=== PATIENT | male | born 1970 | race African-American/Black ===

== ENCOUNTER 2017-11-24 19:18 | Inpatient (IN) | payer MEDICARE ==
[2017-11-24] MEDS ORDERED: ALBUTEROL SO4 2.5/IPRATROPIUM 0.5 INH SOL 3 ML VIAL.NEB. NEB ONE ×3 (19:35→21:25)
[2017-11-24] MEDS ORDERED: ASPIRIN 81 MG CHEWABLE TABLETS PO ONE (19:36)
[2017-11-24] MEDS ORDERED: NITROGLYCERIN SUBLINGUAL 1/150 0.4 MG TAB SL ONE ×4 (19:36→20:23)
[2017-11-24] MEDS ORDERED: ASPIRIN 325 MG TABLET ONE (19:40)
[2017-11-24 20:01] LABS: BASO % 0.5 % (0-2.0); EOS % 4.4 % (0-4.5); HEMATOCRIT 44.1 % (35.4-49); HEMOGLOBIN 15.6 GM/dL (11.7-16.9); LYMPH % 17.7 % (8-40); MCH 31.1 pg (25.7-33.7); MCHC 35.5 g/dl (32.0-35.9); MEAN CELL VOLUME 87.7 fl (80-96); MEAN PLT VOLUME 6.9 fl (7.5-11.1); MONO % 10.2 % (3.8-10.2); NEUT % 67.2 % (42.8-82.8); PLATELET COUNT 264 K/MM3 (134-434); RBC 5.03 M/mm3 (4.00-5.60); RDW 13.5 % (11.9-15.9); WHITE BLOOD COUNT 8.5 K/mm3 (4.0-10.0)
[2017-11-24 20:26] LABS: ALBUMIN 4.1 g/dl (3.4-5.0); ANION GAP 9 (8-16); BILIRUBIN,TOTAL 0.5 mg/dL (0.2-1.0); BLOOD UREA NITROGEN 50 mg/dL (7-18); CALCIUM 7.7 mg/dL (8.5-10.1); CHLORIDE 100 mmol/L (98-107); CO2 29 mmol/L (21-32); CREATININE 4.4 mg/dL (0.7-1.3); GLUCOSE,RANDOM 83 mg/dL (74-106); POTASSIUM 3.2 mmol/L (3.5-5.1); SGOT/AST 20 U/L (15-37); SGPT/ALT 22 U/L (12-78); SODIUM 138 mmol/L (136-145); TOT PROT 7.5 g/dl (6.4-8.2)
[2017-11-24 20:28] LABS: ALK PHOS 69 U/L (45-117)
[2017-11-24] MEDS ORDERED: NITROGLYCERIN 2% OINTMENT - 1GM PACKET TD ONE (20:31)
--- NOTE | 2017-11-24 20:49 | PDOC ---
History of Present Illness - General Chief Complaint: Shortness of Breath Stated Complaint: ASTHMA Time Seen by Provider: 11/24/17 19:29 History Source: Patient Exam Limitations: No Limitations - History of Present Illness Initial Comments: This is a 47 YOM with h/o asthma, HTN (not adherent to medications), and tobacco use (smokes cigarettes/cigars) who p/w midsternal chest pain made worse with deep breathing, ongoing for the past 2-3 days but significantly worsened this afternoon. He has never had this type of pain before. He additionally notes a recent cough and wheezing typical of his asthma exacerbations, but no additional symptoms (no fever, chills, nausea, vomiting, diarrhea, constipation , dysuria, hematuria, atraumatic pleuritic chest pain, difficulty breathing and hypoxemia. Patient's EKG reveals symmetrical T wave inversions in leads 1, aVL, V4 and V6 consistent with lateral wall ischemia. No previous EKGs available for comparison. Upon arrival, patient received aspirin, sublingual nitroglycerin 3 as well as transdermal nitroglycerin with significant improvement in level of her chest discomfort. Repeat EKG showed no dynamic changes with persistent T-wave inversions described earlier. Patient had also received continuous nebulizer therapy with albuterol and Atrovent, Solu-Medrol and magnesium sulfate. Patient' s respiratory status improved symptomatically with increased area entry bilaterally and significantly more pronounced expiratory wheezing bilaterally. However he remains hypoxemic to 88% on room air with improvement to 93% on 2 L via nasal cannula. Patient's chest x-ray reveals no evidence of widened mediastinum, cardiomegaly, infiltrate or effusion; patient's d-dimer is noted to be 497. CBC reveals no evidence of leukocytosis. CMP reveals negative cardiac enzymes and significantly elevated BUN/creatinine consistent with acute renal insufficiency. Patient will require admission to our to telemetry for further evaluation and treatment as well as continuous nebulizer therapy and cardiology and renal consultations. Normocephalic and atraumatic PERRLA, EOMI No JVD, neck is supple + Significant only decreased air entry bilaterally; minimal and expiratory wheezing bilaterally is noted, there is no accessory muscle use or retractions; RRR, Tachycardic Abdomen soft, nontender, nondistended No lower extremity edema Patient is awake and alert, oriented 3, moving all extremity symmetrically #1 11/24/17 22:50 EKG performed at: 24 Nov 2017 at 19:26:03 Vent Rate 112 bpm MO interval 152 ms QRS duration 92 ms QT/QTc 334/455 ms P-R-T axes 59 [address] & T wave abnormality, consider lateral ischemia Abnormal ECG #2 11/24/17 22:51 EKG performed at: 24 Nov 2017 at 20:24:14 Vent Rate 112 bpm MO interval 148 ms QRS duration 84ms QT/QTc 374/510 ms P-R-T axes [address] & T wave abnormality, consider lateral ischemia Abnormal ECG 11/24/17 23:29 Past History - Past Medical History Allergies/Adverse Reactions: Allergies Allergy/AdvReac Type Severity Reaction Status Date / Time No Allergy Information Allergy Verified 11/24/17 19:28 Available Asthma: Yes COPD: No HTN: Yes - Immunization History Immunization Up to Date: Yes - Suicide/Smoking/Psychosocial Hx Smoking History: Unknown if ever smoked Have you smoked in the past 12 months: No Information on smoking cessation initiated: No Hx Alcohol Use: No Drug/Substance Use Hx: No Substance Use Type: None Review of Systems - Review of Systems Able to Perform ROS?: Yes Constitutional: No: Chills, Fever, Unexplained wgt Loss HEENTM: No: Nose Congestion, Throat Pain Respiratory: Yes: Cough, Shortness of Breath, Wheezing Cardiac (ROS): Yes: Chest Pain. No: Edema, Palpitations ABD/GI: No: Constipated, Diarrhea, Nausea, Vomiting : No: Burning, Dysuria Musculoskeletal: No: Back Pain, Neck Pain Integumentary: No: Bruising, Rash Neurological: No: Headache, Numbness, Tingling, Weakness, Dizziness Endocrine: No: Unexplained Weight Gain, Unexplained Weight Loss *Physical Exam - Vital Signs Last Vital Signs Temp Pulse Resp BP Pulse Ox 98.2 F 109 H 20 135/80 92 L 11/24/17 19:24 11/24/17 20:35 11/24/17 20:35 11/24/17 20:35 11/24/17 20:35 - Physical Exam General Appearance: Yes: Nourished, Appropriately Dressed, Other (well appearing and nontoxic appearing but slightly uncomfortable adult male, answering questions appropriately). No: Apparent Distress HEENT: positive: EOMI, OBIE, Normal Voice, Hearing Grossly Normal. negative: Scleral Icterus (R), Scleral Icterus (L), Nasal Congestion Neck: positive: Trachea midline, Supple. negative: Tender, Rigid Respiratory/Chest: positive: Chest Tender (mild tenderness to compression of chest wall reproduces chief complaint exactly), Lungs Clear, Normal Breath Sounds, Wheezing. negative: Respiratory Distress, Crackles, Rhonchi, Stridor Cardiovascular: positive: Regular Rhythm, S1, S2, Tachycardia. negative: Edema , JVD, Murmur Gastrointestinal/Abdominal: positive: Normal Bowel Sounds, Flat, Soft. negative : Tender, Organomegaly, Pulsatile Mass, Guarding Musculoskeletal: positive: Normal Inspection. negative: Decreased Range of Motion, Vertebral Tenderness Extremity: positive: Normal Capillary Refill, Normal Inspection, Normal Range of Motion. negative: Tender, Cyanosis Integumentary: positive: Normal Color, Dry, Warm. negative: Erythema, Rash, Bruising Neurologic: positive: emergency dispatch operator II-XII NML intact (grossly), Fully Oriented, Alert, Normal Mood/Affect, Normal Response, Motor Strength 5/5 Heart Score/ECG Review - History History: Moderately suspicious - Electrocardiogram EKG: Significant ST-depression - Age Age: 45-65 - Risk Factors Risk Factors Heart Score: Yes Hx Hypertension, Yes Smoking History Based on the list above the patient has:: 1-2 risk factors - Troponin Troponin: </= normal limit - Score Heart Score - Total: 5 ED Treatment Course - LABORATORY CBC & Chemistry Diagram: 11/24/17 18:55 11/24/17 18:55 - ADDITIONAL ORDERS Additional order review: Laboratory Results 11/24/17 11/24/17 18:55 18:55 PT with INR 11.70 INR 1.04 D-Dimer 457 Sodium 138 Potassium 3.2 L Chloride 100 Carbon Dioxide 29 Anion Gap 9 BUN 50 H Creatinine 4.4 H Creat Clearance w eGFR 14.62 Random Glucose 83 Calcium 7.7 L Total Bilirubin 0.5 AST 20 ALT 22 Alkaline Phosphatase 69 Creatine Kinase 482 H Creatine Kinase Index 0.6 CK-MB (CK-2) 2.968 Troponin I 0.03 Total Protein 7.5 Albumin 4.1 11/24/17 18:55 RBC 5.03 MCV 87.7 MCHC 35.5 RDW 13.5 MPV 6.9 L Neutrophils % 67.2 Lymphocytes % 17.7 Monocytes % 10.2 Eosinophils % 4.4 Basophils % 0.5 - Medications Given in the ED: ED Medications Discontinued Medications Generic Name Dose Route Start Last Admin Trade Name Octaviano PRN Reason Stop Dose Admin Acetaminophen 650 mg 11/24/17 21:24 11/24/17 21:30 Tylenol - PO 11/24/17 21:25 650 mg ONCE ONE Administration Albuterol/Ipratropium 1 amp 11/24/17 19:35 11/24/17 19:49 Duoneb - NEB 11/24/17 19:36 1 amp ONCE ONE Administration Albuterol/Ipratropium 1 amp 11/24/17 21:25 11/24/17 21:30 Duoneb - NEB 11/24/17 21:26 1 amp ONCE ONE Administration Aspirin 324 mg 11/24/17 19:36 11/24/17 19:49 Asa - PO 11/24/17 19:37 324 mg ONCE ONE Administration Magnesium Sulfate 2 gm 11/24/17 21:25 11/24/17 21:40 Magnesium Sulfate IVPB 11/24/17 21:26 2 gm ONCE ONE Administration Methylprednisolone Sodium Succinate 125 mg 11/24/17 21:40 11/24/17 21:41 Solu-Medrol - IVPUSH 11/24/17 21:41 125 mg NOW ONE Administration Nitroglycerin 0.4 mg 11/24/17 19:36 11/24/17 19:49 Nitrostat - SL 11/24/17 19:37 0.4 mg ONCE ONE Administration Nitroglycerin 0.4 mg 11/24/17 20:05 11/24/17 20:06 Nitrostat - SL 11/24/17 20:06 0.4 mg NOW ONE Administration Nitroglycerin 0.4 mg 11/24/17 20:10 11/24/17 20:20 Nitrostat - SL 11/24/17 20:11 0.4 mg ONCE ONE Administration Nitroglycerin 0.4 mg 11/24/17 20:23 11/24/17 20:20 Nitrostat - SL 11/24/17 20:24 0.4 mg ONCE ONE Administration *DC/Admit/Observation/Transfer Diagnosis at time of Disposition: MARIANNE (acute kidney injury), T wave inversion in EKG Chest pain Qualifiers: Chest pain type: unspecified Qualified Code(s): R07.9 - Chest pain, unspecified Asthma exacerbation Qualifiers: Asthma severity: unspecified severity Asthma persistence: unspecified Qualified Code(s): J45.901 - Unspecified asthma with (acute) exacerbation - Discharge Dispostion Condition at time of disposition: Guarded Decision to Admit order: Yes Decision to Admit order Date/Time: Decision to Admit Order Category Date Time Status Decision to Admit to Hospital Routine Admission 11/24/17 23:25 Ordered - Referrals - Patient Instructions - Post Discharge Activity
[2017-11-24 20:58] LABS: INR 1.04 (0.82-1.09); PROTHROMBIN TIME (PATIENT) 11.7 SEC (9.7-13.0)
[2017-11-24] MEDS ORDERED: ACETAMINOPHEN 325 MG TABLET (FP) PO ONE (21:24)
[2017-11-24] MEDS ORDERED: MAGNESIUM SULF 50% (8.12 MEQ/2 ML-1 GM VIAL) ONE (21:25)
[2017-11-24] MEDS ORDERED: ACETAMINOPHEN 325 MG TABLET (FP) ONE (21:25)
[2017-11-24] MEDS ORDERED: MAGNESIUM SULF 50% (8.12 MEQ/2 ML-1 GM VIAL) IVPB ONE (21:25)
[2017-11-24] MEDS ORDERED: methylPREDNISolone NA SUCC 125 MG/2 ML VIAL ONE (21:25)
[2017-11-24] MEDS ORDERED: methylPREDNISolone NA SUCC 125 MG/2 ML VIAL IVPUSH ONE (21:40)
--- NOTE | 2017-11-24 22:49 | PDOC ---
Attending Attestation - Resident Resident Name: Lucrecia Conner - ED Attending Attestation I have performed the following: I have examined & evaluated the patient, The case was reviewed & discussed with the resident, I agree w/resident's findings & plan, Exceptions are as noted - Physicial Exam PE: 11/24/17 22:44 Patient was seen and evaluated immediately upon arrival. On initial evaluation, patient is awake and alert, well-nourished, tachypneic and dyspneic, hypoxic to 88% on room air, improving to 93% on 2 L via nasal cannula; Normocephalic and atraumatic PERRLA, EOMI No JVD, neck is supple + Significant only decreased air entry bilaterally; minimal and expiratory wheezing bilaterally is noted, there is no accessory muscle use or retractions; RRR, Tachycardic Abdomen soft, nontender, nondistended No lower extremity edema Patient is awake and alert, oriented 3, moving all extremity symmetrically - Medical Decision Making 11/24/17 22:45 Patient is a 47-year-old male with history of hypertension (noncompliant with his medication regimen), asthma (no history of intubations) who presents with atraumatic pleuritic chest pain, difficulty breathing and hypoxemia. Patient's EKG reveals symmetrical T wave inversions in leads 1, aVL, V4 and V6 consistent with lateral wall ischemia. No previous EKGs available for comparison. Upon arrival, patient received aspirin, sublingual nitroglycerin 3 as well as transdermal nitroglycerin with significant improvement in level of her chest discomfort. Repeat EKG showed no dynamic changes with persistent T-wave inversions described earlier. Patient had also received continuous nebulizer therapy with albuterol and Atrovent, Solu-Medrol and magnesium sulfate. Patient' s respiratory status improved symptomatically with increased area entry bilaterally and significantly more pronounced expiratory wheezing bilaterally. However he remains hypoxemic to 88% on room air with improvement to 93% on 2 L via nasal cannula. Patient's chest x-ray reveals no evidence of widened mediastinum, cardiomegaly, infiltrate or effusion; patient's d-dimer is noted to be 497. CBC reveals no evidence of leukocytosis. CMP reveals negative cardiac enzymes and significantly elevated BUN/creatinine consistent with acute renal insufficiency. Patient will require admission to our to telemetry for further evaluation and treatment as well as continuous nebulizer therapy and cardiology and renal consultations. <Braxton Houston - Last Filed: 11/24/17 22:43> - HPI HPI: 11/24/17 22:50 The patient is a 47 year old male, with a significant past medical history of asthma and hypertension (noncompliant with medication), who presents to the emergency department with, several days of midsternal chest pain. The patient describes his chest pain as pleuritic in nature with associated difficulty breathing and cough. The patient smokes both cigarettes and cigars. He denies any recent fevers, chills, headache or dizziness. He denies any recent nausea, vomit, diarrhea or constipation. He denies any recent dysuria, frequency, urgency or hematuria. Allergies: NKA Past surgical history: None reported. Social History: Smoker. Denies EtOH use and recreational drug use. <Zakiya Luna - Last Filed: 11/24/17 22:51> Heart Score/ECG Review #1 11/24/17 22:50 EKG performed at: 24 Nov 2017 at 19:26:03 Vent Rate 112 bpm GA interval 152 ms QRS duration 92 ms QT/QTc 334/455 ms P-R-T axes 59 [address] & T wave abnormality, consider lateral ischemia Abnormal ECG #2 11/24/17 22:51 EKG performed at: 24 Nov 2017 at 20:24:14 Vent Rate 112 bpm GA interval 148 ms QRS duration 84ms QT/QTc 374/510 ms P-R-T axes 42 [address] & T wave abnormality, consider lateral ischemia Abnormal ECG <Zakiya Luna - Last Filed: 11/24/17 22:51> Attestations - Attestations 11/24/17 22:51 Documentation prepared by Zakiya Luna, acting as medical assistant ob gyn for Braxton Houston MD. <Zakiya Luna - Last Filed: 11/24/17 22:51>
[2017-11-24] MEDS ORDERED: ATORVASTATIN CA 80 MG TABLET (FP) PO ONE (23:28)
[2017-11-25] MEDS ORDERED: ALBUTEROL SO4 0.083% IH SOL 2.5 MG/3 ML VIAL.NEB. NEB PRN (00:59)
--- NOTE | 2017-11-25 01:05 | HP ---
CHIEF COMPLAINT: chest pain, SOB x 2 days PCP: at [facility], recently retired- Dr. Naik HISTORY OF PRESENT ILLNESS: 47 y/o M with PMH HTN (dx 7 months ago at [facility] by PMD; on HCTZ, amlodipine-noncompliant. Only compliant over last 2 wks), asthma (no hx intubations), recent active smoker (few cigarettes/wk), who presents to the ED c /o chest pain and SOB over the past two days. As per pt, when he was home and sitting at rest yesterday, he developed sudden mid-sternal chest pain. It was a 7/10, "pressure-like" sensation in his mid-sternal region, which was initially a 7/10 improving to 4/10 after receiving nitroglycerin in the ED. It was a/w SOB and pleuritic pain. Initially, he thought his asthma was worsening, so he took his albuterol inhaler q1h, only to have his sx subside temporarily in between. Today, pt's SOB became so severe that he decided to come to to the hospital for further evaluation. Denies TORO, N/V, diaphoresis, L arm radiation, abdominal pain, or changes in urinary or bowel function. Pt has never been followed by a leather belt loop cutter, but has had a stress test done in the past. He states that the result was normal. He has never followed with a campus manager, and states that he has never been told that he had any renal issues. ER course was notable for: (1) aspirin 324mg PO x 1 (2) nitro 0.4mg SL x 3 (3) mg sulfate 2gm IVPB (4) solumedrol 125mg IVP x 1 (5) duonebs x2 Recent Travel: none PAST MEDICAL HISTORY: as above PAST SURGICAL HISTORY: R knee surgery- 2013 Social History: was a [place]. 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 2-3 x a week shots and multiple beers Drugs: currently denies. marijuana in past Family History: Allergies No Allergy Information Available Allergy (Verified 11/24/17 19:28) HOME MEDICATIONS: -Home pharmacy: [facility] pharmacy [phone] Pt not compliant with home medications states he is on "HCTZ" and "amlodipine" does not know dosages will need to call pharmacy when open for official med rec REVIEW OF SYSTEMS CONSTITUTIONAL: Absent: fever, chills, diaphoresis, generalized weakness, malaise, loss of appetite, weight change HEENT: Absent: rhinorrhea, nasal congestion, throat pain, throat swelling, difficulty swallowing, mouth swelling, ear pain, eye pain, visual changes CARDIOVASCULAR: +chest pain Absent: syncope, palpitations, irregular heart rate, lightheadedness, peripheral edema RESPIRATORY: +SOB Absent: cough, dyspnea with exertion, orthopnea, wheezing, stridor, hemoptysis GASTROINTESTINAL: Absent: abdominal pain, abdominal distension, nausea, vomiting, diarrhea, constipation, melena, hematochezia GENITOURINARY: Absent: dysuria, frequency, urgency, hesitancy, hematuria, flank pain, genital pain MUSCULOSKELETAL: Absent: myalgia, arthralgia, joint swelling, back pain, neck pain SKIN: Absent: rash, itching, pallor HEMATOLOGIC/IMMUNOLOGIC: Absent: easy bleeding, easy bruising, lymphadenopathy, frequent infections ENDOCRINE: Absent: unexplained weight gain, unexplained weight loss, heat intolerance, cold intolerance NEUROLOGIC: Absent: headache, focal weakness or paresthesias, dizziness, unsteady gait, seizure, mental status changes, bladder or bowel incontinence PSYCHIATRIC: Absent: anxiety, depression, suicidal or homicidal ideation, hallucinations. PHYSICAL EXAMINATION Vital Signs - 24 hr 11/24/17 11/24/17 11/24/17 19:24 19:57 20:04 Temperature 98.2 F Pulse Rate 122 H Pulse Rate [ 122 H Apical] Respiratory 22 20 Rate Blood Pressure 136/89 Blood Pressure 112/71 [Right Arm] O2 Sat by Pulse 90 L 99 Oximetry (%) 11/24/17 20:35 Temperature Pulse Rate Pulse Rate [ 109 H Apical] Respiratory 20 Rate Blood Pressure Blood Pressure 135/80 [Right Arm] O2 Sat by Pulse 92 L Oximetry (%) GENERAL: Sitting in bed, eating pizza. Awake, alert, and fully oriented, in no acute distress. HEAD: Normal with no signs of trauma. EYES: Pupils equal, round and reactive to light, extraocular movements intact, sclera anicteric, conjunctiva clear. EARS, NOSE, THROAT: Ears normal, nares patent, oropharynx clear without exudates. Moist mucous membranes. NECK: Normal range of motion, supple. -JVD LUNGS: Breath sounds equal, clear to auscultation bilaterally. No wheezes, and no crackles. No accessory muscle use. HEART: Regular rate and rhythm, normal S1 and S2 without murmur, rub or gallop. ABDOMEN: Soft, nontender, not distended, normoactive bowel sounds, no guarding, no rebound, no masses. MUSCULOSKELETAL: Normal range of motion at all joints. No bony deformities or tenderness. No CVA tenderness. LOWER EXTREMITIES: 2+ posterior tibial pulses, warm, well-perfused. No calf tenderness. No peripheral edema. NEUROLOGICAL: Cranial nerves II-XII intact. Normal speech. Normal gait. PSYCHIATRIC: Cooperative. Laboratory Results - last 24 hr 11/24/17 11/24/17 11/24/17 18:55 18:55 18:55 WBC 8.5 RBC 5.03 Hgb 15.6 Hct 44.1 MCV 87.7 MCH 31.1 MCHC 35.5 RDW 13.5 Plt Count 264 MPV 6.9 L Neutrophils % 67.2 Lymphocytes % 17.7 Monocytes % 10.2 Eosinophils % 4.4 Basophils % 0.5 PT with INR 11.70 INR 1.04 D-Dimer 457 Sodium 138 Potassium 3.2 L Chloride 100 Carbon Dioxide 29 Anion Gap 9 BUN 50 H Creatinine 4.4 H Creat Clearance w eGFR 14.62 Random Glucose 83 Calcium 7.7 L Total Bilirubin 0.5 AST 20 ALT 22 Alkaline Phosphatase 69 Creatine Kinase 482 H Creatine Kinase Index 0.6 CK-MB (CK-2) 2.968 Troponin I 0.03 Total Protein 7.5 Albumin 4.1 11/24/17: CXR: no evidence of acute infiltrate, pulmonary vascular congestion or pleural effusion. 11/24/17: EKG: TWI I, avL, v4-v6 ASSESSMENT/PLAN: 47 y/o M with PMH HTN (dx 7 months ago at [facility] by PMD; on HCTZ, amlodipine-noncompliant. Only compliant over last 2 wks), asthma (no hx intubations), recent active smoker (few cigarettes/wk), who presents to the ED c /o chest pain and SOB over the past two days. #Chest pain, r/o ACS -Mid-sternal chest pain, clinically improved with NG -EKG: with evidence of lateral ischemia, no change in EKG w/NG -F/u ECHO - to determine any wall motion abnormalities -Received aspirin 324 mg PO x 1 in ED -to continue on aspirin 81mg PO qd -Lipitor 40mg PO qd -F/u TSH -1st trop (-), trend q6h. serial EKGs -Lipid panel -Utox -A1c -Cardio consult - -tele monitoring #?MARIANNE on CKD vs. CKD possibly 2/2 non-compliance with HTN meds -Will need to calculate FEna to determine type -F/u urine lytes, urine sodium, creatinine -F/u Renal sono -IV LR 100 cc/hr gently hydrate -avoid nephrotoxic agents -Nephro consult- Dr. Luu #HTN- currently controlled -Continue amlodipine 10mg PO qd -D/c HCTZ for now d/t renal fnc #asthma -albuterol 1 amp q4h PRN -will reassess, as pt with chest pain do not want to cause incr demand and tachycardia #active smoker -counseled on smoking cessation #hypokalemia -will supplement through IV LR for now, as pt with ARF will avoid oral supplementations #hypocalcemia -corrected Ca 7.6 -as above, supplemented through IV LR for now as pt with ARF avoid oral supplementations #F/E/N IV LR 100 cc/hr monitor lytes cholesterol/fat controlled diet #PPX early ambulation, SCD's #Dispo continued monitoring on tele Visit type - Emergency Visit Emergency Visit: Yes ED Registration Date: 11/24/17 Care time: The patient presented to the Emergency Department on the above date and was hospitalized for further evaluation of their emergent condition. - New Patient This patient is new to me today: Yes Date on this admission: 11/25/17 - Critical Care Critical Care patient: No Hospitalist Screening - Colonoscopy Questionnaire Colonoscopy Questionnaire: Colonoscopy Questionnaire - Patient: 50 - 75 years old and never had a screening colonoscopy: Unknown History of colon or rectal polyps, or CA: Unknown History of IBD, Crohn's disease or UC: Unknown History of abdominal radiation therapy as a child: Unknown - Relative: 1 with colon or rectal CA, or polyps at age 60 or younger: Unknown Colon or rectal CA diagnosed at age 45 or younger: Unknown Multiple relatives with colon or rectal CA: Unknown - Outcome: Screening Result: Negative Screen
[2017-11-25] MEDS ORDERED: ATORVASTATIN CA 80 MG TABLET (FP) ONE (01:08)
[2017-11-25] MEDS: LACTATED RINGERS SOLUTION 1,000 ML/1,000 ML INFUS.BAG IV SCH (01:14)
[2017-11-25 01:38] LABS: COCAINE, UR NEGATIVE ng/ml (CUTOFF=300); METHADONE, UR NEGATIVE ng/ml (CUTOFF=300); OPIATES, URI NEGATIVE ng/ml (CUTOFF=300); PHENCYCLIDINE,URINE NEGATIVE ng/ml (CUTOFF=25); URINE AMPHETAMINES NEGATIVE ng/ml (CUTOFF=500); URINE BARBITURATES NEGATIVE ng/ml (CUTOFF=200); URINE BENZODIAZEPINES NEGATIVE ng/ml (CUTOFF=200)
[2017-11-25 01:51] LABS: URINE APPEARANCE CLEAR; URINE BILIRUBIN NEGATIVE (<2.0 mg/dL); URINE BLOOD NEGATIVE (NEGATIVE); URINE COLOR YELLOW; URINE GLUCOSE (UA) NEGATIVE (NEGATIVE); URINE KETONE NEGATIVE (NEGATIVE); URINE LEUK ESTERASE NEGATIVE (NEGATIVE); URINE NITRITE NEGATIVE (NEGATIVE); URINE PROTEIN NEGATIVE (NEGATIVE); URINE UROBILINOGEN NEGATIVE mg/dL (0.2-1.0)
[2017-11-25 03:21] VITALS: BMI 26.2
--- NOTE | 2017-11-25 04:08 | PN ---
Teaching Attending Note Name of Resident: Genevieve Tabares ATTENDING PHYSICIAN STATEMENT I saw and evaluated the patient. I reviewed the resident's note and discussed the case with the resident. I agree with the resident's findings and plan as documented. SUBJECTIVE: OBJECTIVE: ASSESSMENT AND PLAN: this is a 47 y/o M with PMH HTN (dx 7 months ago at [facility] by PMD; on HCTZ, amlodipine) who is noncompliant, asthma (no hx intubations), active smoker (few cigarettes/wk), presented to the ER with c/o atypical chest pain and SOB over the past two days. As per pt, when he was home and sitting at rest yesterday, he developed sudden mid-sternal chest pain admit to tele consult cardiology consult renal avoid diuretic c/w amlodipine avoid cira I obtain renal US obtain an echocardiogram
[2017-11-25 07:20] LABS: BASO % 0.1 % (0-2.0); EOS % 0.1 % (0-4.5); HEMATOCRIT 41.6 % (35.4-49); HEMOGLOBIN 14.7 GM/dL (11.7-16.9); LYMPH % 9.8 % (8-40); MCH 31.1 pg (25.7-33.7); MCHC 35.3 g/dl (32.0-35.9); MEAN CELL VOLUME 88.1 fl (80-96); MEAN PLT VOLUME 7.4 fl (7.5-11.1); MONO % 1.2 % (3.8-10.2); NEUT % 88.8 % (42.8-82.8); PLATELET COUNT 257 K/MM3 (134-434); RBC 4.72 M/mm3 (4.00-5.60); RDW 13.4 % (11.9-15.9); WHITE BLOOD COUNT 7.2 K/mm3 (4.0-10.0)
[2017-11-25 07:46] LABS: CHLORIDE 100 mmol/L (98-107); POTASSIUM 3.5 mmol/L (3.5-5.1); SODIUM 140 mmol/L (136-145)
[2017-11-25 07:51] LABS: ALBUMIN 3.7 g/dl (3.4-5.0); ALK PHOS 71 U/L (45-117); ANION GAP 10 (8-16); BILIRUBIN,TOTAL 0.5 mg/dL (0.2-1.0); BLOOD UREA NITROGEN 23 mg/dL (7-18); CALCIUM 8.8 mg/dL (8.5-10.1); CO2 30 mmol/L (21-32); CREATININE 1.6 mg/dL (0.7-1.3); GLUCOSE,RANDOM 164 mg/dL (74-106); MAGNESIUM 2.6 mg/dL (1.8-2.4); PHOSPHOROUS 2.1 mg/dL (2.5-4.9); SGOT/AST 18 U/L (15-37); SGPT/ALT 20 U/L (12-78); TOT PROT 7.2 g/dl (6.4-8.2)
--- NOTE | 2017-11-25 09:17 | EKG ---
Test Reason : Blood Pressure : / mmHG Vent. Rate : 097 BPM Atrial Rate : 097 BPM P-R Int : 166 ms QRS Dur : 098 ms QT Int : 376 ms P-R-T Axes : 058 002 079 degrees QTc Int : 477 ms NORMAL SINUS RHYTHM NONSPECIFIC T WAVE ABNORMALITY PROLONGED QT ABNORMAL ECG WHEN COMPARED WITH ECG OF 24-NOV-2017 20:24, T WAVE INVERSION NO LONGER EVIDENT IN LATERAL LEADS Confirmed by AMBERLY SANTOS, MARITZA ([id number]) on 11/25/2017 9:16:31 AM Referred By: Confirmed By:MARITZA GAMING MD
--- NOTE | 2017-11-25 09:21 | EKG ---
Test Reason : Blood Pressure : / mmHG Vent. Rate : 112 BPM Atrial Rate : 112 BPM P-R Int : 148 ms QRS Dur : 084 ms QT Int : 374 ms P-R-T Axes : 042 007 108 degrees QTc Int : 510 ms SINUS TACHYCARDIA ABNORMAL ECG WHEN COMPARED WITH ECG OF 24-NOV-2017 19:26, NO SIGNIFICANT CHANGE WAS FOUND Confirmed by MARITZA GAMING MD ([id number]) on 11/25/2017 9:20:42 AM Referred By: Confirmed By:MARITZA GAMING MD
--- NOTE | 2017-11-25 09:21 | EKG ---
Test Reason : Blood Pressure : / mmHG Vent. Rate : 112 BPM Atrial Rate : 112 BPM P-R Int : 152 ms QRS Dur : 092 ms QT Int : 334 ms P-R-T Axes : 059 017 113 degrees QTc Int : 455 ms SINUS TACHYCARDIA ABNORMAL ECG NO PREVIOUS ECGS AVAILABLE Confirmed by MARITZA GAMING MD ([id number]) on 11/25/2017 9:21:10 AM Referred By: Confirmed By:MARITZA GAMING MD
[2017-11-25] MEDS: amLODIPine BESYLATE 10 MG TABLET (FP) PO SCH (09:57)
--- NOTE | 2017-11-25 11:40 | PN ---
Progress Note (short form) - Note Progress Note: Patient feels better, stated that he does not drink water usually , mostly soda , just little water. Vital Signs Temperature 98.4 F 11/25/17 10:00 Pulse Rate 104 H 11/25/17 10:00 Respiratory Rate 18 11/25/17 10:00 Blood Pressure 135/71 11/25/17 10:00 O2 Sat by Pulse Oximetry (%) 94 L 11/25/17 09:00 GENERAL: Sitting in bed, eating pizza. Awake, alert, and fully oriented, in no acute distress. HEAD: Normal with no signs of trauma. EYES: Pupils equal, round and reactive to light, extraocular movements intact, sclera anicteric, conjunctiva clear. EARS, NOSE, THROAT: Ears normal, nares patent, oropharynx clear without exudates. Moist mucous membranes. NECK: Normal range of motion, supple. no JVD LUNGS: Breath sounds equal, clear to auscultation bilaterally. No wheezes, and no crackles. No accessory muscle use. HEART: Regular rate and rhythm, normal S1 and S2 without murmur, rub or gallop. ABDOMEN: Soft, nontender, not distended, normoactive bowel sounds, no guarding, no rebound, no masses. MUSCULOSKELETAL: Normal range of motion at all joints. No bony deformities or tenderness. No CVA tenderness. LOWER EXTREMITIES: 2+ posterior tibial pulses, warm, well-perfused. No calf tenderness. No peripheral edema. NEUROLOGICAL: Cranial nerves II-XII intact. Normal speech. Normal gait. PSYCHIATRIC: Cooperative. CBCD WBC 7.2 K/mm3 (4.0-10.0) 11/25/17 06:43 RBC 4.72 M/mm3 (4.00-5.60) 11/25/17 06:43 Hgb 14.7 GM/dL (11.7-16.9) 11/25/17 06:43 Hct 41.6 % (35.4-49) 11/25/17 06:43 MCV 88.1 fl (80-96) 11/25/17 06:43 MCHC 35.3 g/dl (32.0-35.9) 11/25/17 06:43 RDW 13.4 % (11.9-15.9) 11/25/17 06:43 Plt Count 257 K/MM3 (134-434) 11/25/17 06:43 MPV 7.4 fl (7.5-11.1) L 11/25/17 06:43 CMP Sodium 140 mmol/L (136-145) 11/25/17 06:43 Potassium 3.5 mmol/L (3.5-5.1) 11/25/17 06:43 Chloride 100 mmol/L (98-107) 11/25/17 06:43 Carbon Dioxide 30 mmol/L (21-32) 11/25/17 06:43 Anion Gap 10 (8-16) 11/25/17 06:43 BUN 23 mg/dL (7-18) H D 11/25/17 06:43 Creatinine 1.6 mg/dL (0.7-1.3) H D 11/25/17 06:43 Creat Clearance w eGFR 46.98 (>60) 11/25/17 06:43 Random Glucose 164 mg/dL (74-106) H D 11/25/17 06:43 Calcium 8.8 mg/dL (8.5-10.1) 11/25/17 06:43 Total Bilirubin 0.5 mg/dL (0.2-1.0) 11/25/17 06:43 AST 18 U/L (15-37) 11/25/17 06:43 ALT 20 U/L (12-78) 11/25/17 06:43 Alkaline Phosphatase 71 U/L (45-117) 11/25/17 06:43 Total Protein 7.2 g/dl (6.4-8.2) 11/25/17 06:43 Albumin 3.7 g/dl (3.4-5.0) 11/25/17 06:43 CARDIAC ENZYMES Creatine Kinase 416 IU/L (39-308) H 11/25/17 01:25 Troponin I 0.03 ng/ml (0.00-0.05) 11/25/17 06:43 Current Medications Generic Name Dose Route Start Last Admin Trade Name Freq PRN Reason Stop Dose Admin Albuterol Sulfate 1 amp 11/25/17 00:59 Ventolin 0.083% Nebulizer Soln - NEB Q4H PRN SHORT OF BREATH/WHEEZING Amlodipine Besylate 10 mg 11/25/17 10:00 11/25/17 09:57 Norvasc - PO 10 mg DAILY PAULA Administration Aspirin 81 mg 11/26/17 10:00 Asa - PO DAILY PAULA Atorvastatin Calcium 40 mg 11/26/17 10:00 Lipitor - PO DAILY [facility] Lactated Ringer's 1,000 ml in 1,000 mls @ 100 mls/hr 11/25/17 01:00 11/25/17 01:14 Lactated Ringers Solution IV 100 mls/hr ASDIR PAULA Administration Home Medications Medication Instructions Recorded Albuterol Sulfate Inhaler - 1 - 2 inh PO Q4H 11/25/17 [Ventolin Hfa Inhaler -] Amlodipine Besylate [Norvasc -] 10 mg PO DAILY 11/25/17 Hydrochlorothiazide [Hctz -] 12.5 mg PO DAILY 11/25/17 Laboratory Tests 11/24/17 11/25/17 11/25/17 18:55 01:25 06:43 Troponin I 0.03 0.03 0.03 11/24/17: CXR: no evidence of acute infiltrate, pulmonary vascular congestion or pleural effusion. 11/24/17: EKG: TWI I, avL, v4-v6 ASSESSMENT/PLAN: Patient is a 47 y/o [place] Male with PMHx of HTN (dx 7 months ago at [facility] by PMD; on HCTZ, amlodipine-noncompliant. Only compliant over last 2 wks), asthma (no hx intubations), recent active smoker (few cigarettes/wk), who presents to the ED c/o chest pain and SOB over the past two days. #Acute Chest pain, r/o ACS , echo ordered, 3 sets of troponin is negative. On aspirin , on Lipitor continue, cardio consult - , continue tele monitoring #MARIANNE on CKD most likely due dehydration, Cr 4.4-->1.6 today will continue IV LR 100 cc/hr gently hydration , Nephro consult- Dr. Luu appreciated #HTN- currently controlled. continue amlodipine 10mg PO qd. Htcz discontinued will continue to monitor #asthma, albuterol 1 amp q4h PRN #active smoker counseled on smoking cessation #hypokalemia will replete, Kdur 2o x 1 dose today #hypocalcemia corrected Ca 7.6, supplemented through IV LR for now as pt with ARF, avoid oral supplementations DVt Px; Heparin Visit type - Emergency Visit Emergency Visit: Yes ED Registration Date: 11/24/17 Care time: The patient presented to the Emergency Department on the above date and was hospitalized for further evaluation of their emergent condition. - New Patient This patient is new to me today: Yes Date on this admission: 11/25/17 - Critical Care Critical Care patient: No - Discharge Referral Referred to [facility] Med [facility] No
--- NOTE | 2017-11-25 12:12 | CONSULT ---
Consult Consult Specialty:: Nephrology Reason for Consultation:: MARIANNE - History of Present Illness Chief Complaint: shortness of breath and chest discomfort History of Present Illness: Pt is a 47 year old male with pmhx of asthma and HTN who presents to the ER with shortness of breath, wheezing and chest discomfort. He was found to be in acute renal failure and I was called to evaluate him. He denies history of kidney disease. He denies dysuria or hematuria. He denies nsaid use. He takes amlodipine and HCTZ for HTN. He uses albuterol inhailers for asthma. He has not been eating of drinking much for the last few days. - History Source History Provided By: Patient, Medical Record - Past Medical History Cardio/Vascular: Yes: HTN Pulmonary: Yes: Asthma - Alcohol/Substance Use Hx Alcohol Use: Yes - Smoking History Smoking history: Current some day smoker Have you smoked in the past 12 months: Yes Home Medications - Allergies Allergies/Adverse Reactions: Allergies Allergy/AdvReac Type Severity Reaction Status Date / Time No Allergy Information Allergy Verified 11/24/17 19:28 Available - Home Medications Home Medications: Ambulatory Orders Albuterol Sulfate Inhaler - [Ventolin Hfa Inhaler -] 1 - 2 inh PO Q4H 11/25/17 Amlodipine Besylate [Norvasc -] 10 mg PO DAILY 11/25/17 Hydrochlorothiazide [Hctz -] 12.5 mg PO DAILY 11/25/17 Family Disease History - Family Disease History Family History: Denies Review of Systems - Review of Systems Constitutional: reports: Malaise. denies: Chills, Fever Eyes: reports: No Symptoms HENT: reports: No Symptoms Neck: reports: No Symptoms Cardiovascular: reports: Shortness of Breath. denies: Edema Respiratory: reports: Cough, SOB, SOB on Exertion, Wheezing Gastrointestinal: reports: No Symptoms Genitourinary: reports: No Symptoms Musculoskeletal: reports: No Symptoms Integumentary: reports: No Symptoms Neurological: reports: No Symptoms Endocrine: reports: No Symptoms Hematology/Lymphatic: reports: No Symptoms Psychiatric: reports: No Symptoms Physical Exam Vital Signs: Vital Signs Temperature 98.4 F 11/25/17 10:00 Pulse Rate 104 H 11/25/17 10:00 Respiratory Rate 18 11/25/17 10:00 Blood Pressure 135/71 11/25/17 10:00 O2 Sat by Pulse Oximetry (%) 94 L 11/25/17 09:00 Constitutional: Yes: Calm Eyes: Yes: Conjunctiva Clear HENT: Yes: Atraumatic Neck: Yes: Supple Cardiovascular: Yes: S1, S2 Respiratory: Yes: On Nasal O2, Wheezes Gastrointestinal: Yes: Soft Renal/: Yes: WNL Musculoskeletal: Yes: WNL Extremities: Yes: WNL Edema: No Integumentary: Yes: WNL, Tattoos Neurological: Yes: Oriented Psychiatric: Yes: Oriented Labs: CBC, BMP 11/25/17 06:43 11/25/17 06:43 Laboratory Tests 11/24/17 11/25/17 11/25/17 18:55 01:15 01:15 WBC Hgb Plt Count Sodium Potassium BUN 50 H Creatinine 4.4 H Urine Protein Negative Urine Blood Negative Ur Random Sodium Urine Creatinine 244.0 11/25/17 11/25/17 11/25/17 01:15 06:43 06:43 WBC 7.2 Hgb 14.7 Plt Count 257 Sodium 140 Potassium 3.5 BUN 23 H D Creatinine 1.6 H D Urine Protein Urine Blood Ur Random Sodium 215 Urine Creatinine Imaging - Results Chest X-ray: Report Reviewed Ultrasound: Report Reviewed Problem List - Problems (1) Hypertension Code(s): I10 - ESSENTIAL (PRIMARY) HYPERTENSION (2) MARIANNE (acute kidney injury) Code(s): N17.9 - ACUTE KIDNEY FAILURE, UNSPECIFIED (3) Asthma exacerbation Code(s): J45.901 - UNSPECIFIED ASTHMA WITH (ACUTE) EXACERBATION Qualifiers: Asthma severity: unspecified severity Asthma persistence: unspecified Qualified Code(s): J45.901 - Unspecified asthma with (acute) exacerbation Assessment/Plan Current Medications Generic Name Dose Route Start Last Admin Trade Name Freq PRN Reason Stop Dose Admin Albuterol Sulfate 1 amp 11/25/17 00:59 Ventolin 0.083% Nebulizer Soln - NEB Q4H PRN SHORT OF BREATH/WHEEZING Amlodipine Besylate 10 mg 11/25/17 10:00 11/25/17 09:57 Norvasc - PO 10 mg DAILY PAULA Administration Aspirin 81 mg 11/26/17 10:00 Asa - PO DAILY PAULA Atorvastatin Calcium 40 mg 11/26/17 10:00 Lipitor - PO DAILY PAULA Heparin Sodium (Porcine) 5,000 unit 11/25/17 14:00 Heparin - SQ TID PAULA Lactated Ringer's 1,000 ml in 1,000 mls @ 100 mls/hr 11/25/17 01:00 11/25/17 01:14 Lactated Ringers Solution IV 100 mls/hr ASDIR PAULA Administration Impression 1. MARIANNE improving 2. HTN 3. asthma exacerbation 4. hypokalemia Plan - renal ultrasound reviewed - renal function is improving - ua neg for blood or protein - hold hctz - urine sodium is elevated, can be from fluids and from the thiazide - FENa is 2.7 based on a web worker of 4.4 - will need a full renal workup which can be done as outpt - pt eager to go home today but I advise he stays on fluids till tomorrow when we can recheck labs - cont amlodipine at 10 mg - repeat bmp in am - potassium improved - replace phos - will follow Dr Luu
[2017-11-25] MEDS: NAPH,MB-DB/K PH,MBDB POWDER PACKET PO SCH ×2 (12:31→22:13)
[2017-11-25] MEDS: HEPARIN NA (PORCINE) 5,000 UNITS/ML 1ML VIAL SQ SCH ×2 (13:49→22:13)
--- NOTE | 2017-11-25 16:24 | CON.CARD ---
Consult Consult Specialty:: Cardiology Referred by:: Hospitalist Medicine Reason for Consultation:: Chest pain - History of Present Illness Chief Complaint: Chest pain History of Present Illness: PCP: at [facility], recently retired- Dr. Naik HISTORY OF PRESENT ILLNESS: 47 y/o M with PMH HTN (dx 7 months ago at [facility] by PMD; on HCTZ, amlodipine-noncompliant. Only compliant over last 2 wks), asthma (no hx intubations), recent active smoker (few cigarettes/wk), who presents to the ED c /o chest pain and SOB over the past two days. As per pt, when he was home and sitting at rest yesterday, he developed sudden sharp mid-sternal chest pain, post-tussive, associated with dyspnea and wheeze improved with bronchodilators. Patient reports increased frequency of asthma sxs with starting cigarette use. - History Source History Provided By: Patient Limitations to Obtaining History: No Limitations - Past Medical History Cardio/Vascular: Yes: HTN Pulmonary: Yes: Asthma - Alcohol/Substance Use Hx Alcohol Use: Yes - Smoking History Smoking history: Current some day smoker Have you smoked in the past 12 months: Yes Home Medications - Allergies Allergies/Adverse Reactions: Allergies Allergy/AdvReac Type Severity Reaction Status Date / Time No Allergy Information Allergy Verified 11/24/17 19:28 Available - Home Medications Home Medications: Ambulatory Orders Albuterol Sulfate Inhaler - [Ventolin Hfa Inhaler -] 1 - 2 inh PO Q4H 11/25/17 Amlodipine Besylate [Norvasc -] 10 mg PO DAILY 11/25/17 Hydrochlorothiazide [Hctz -] 12.5 mg PO DAILY 11/25/17 Review of Systems - Review of Systems Cardiovascular: reports: Chest Pain, Shortness of Breath Respiratory: reports: Wheezing Vital Signs: Vital Signs Temperature 98.2 F 11/25/17 14:00 Pulse Rate 103 H 11/25/17 14:00 Respiratory Rate 18 11/25/17 10:00 Blood Pressure 140/78 11/25/17 14:00 O2 Sat by Pulse Oximetry (%) 94 L 11/25/17 09:00 Constitutional: Yes: No Distress, Calm Neck: Yes: Supple Respiratory: Yes: SOB, Wheezes Gastrointestinal: Yes: Normal Bowel Sounds, Soft Cardiovascular: Yes: Regular Rate and Rhythm JVD: No Carotid Bruit: No Heart Sounds: Yes: S1, S2 Edema: No - Other Data Labs, Other Data: CBC, BMP 11/25/17 06:43 11/25/17 06:43 INR, PTT INR 1.04 (0.82-1.09) 11/24/17 18:55 Troponin, BNP 11/24/17 11/25/17 11/25/17 18:55 01:25 06:43 Troponin I 0.03 0.03 0.03 Troponin, BNP 11/24/17 11/25/17 11/25/17 18:55 01:25 06:43 Troponin I 0.03 0.03 0.03 NSR @ 97 nonspec Tw changes Imaging - Results Chest X-ray: Report Reviewed (NAD) Problem List - Problems (1) Hyperlipidemia Code(s): E78.5 - HYPERLIPIDEMIA, UNSPECIFIED Qualifiers: Hyperlipidemia type: pure hypercholesterolemia Qualified Code(s): E78.00 - Pure hypercholesterolemia, unspecified; E78.0 - Pure hypercholesterolemia (2) Atypical chest pain Code(s): R07.89 - OTHER CHEST PAIN (3) MARIANNE (acute kidney injury) Code(s): N17.9 - ACUTE KIDNEY FAILURE, UNSPECIFIED (4) Asthma exacerbation Code(s): J45.901 - UNSPECIFIED ASTHMA WITH (ACUTE) EXACERBATION Qualifiers: Asthma severity: unspecified severity Asthma persistence: unspecified Qualified Code(s): J45.901 - Unspecified asthma with (acute) exacerbation (5) Hypertension Code(s): I10 - ESSENTIAL (PRIMARY) HYPERTENSION Qualifiers: Hypertension type: essential hypertension Qualified Code(s): I10 - Essential (primary) hypertension Assessment/Plan 1. Atypical post-tussive chest pain 2. Asthma exacerbation 3. HTN 4. Tobacco abuse 5. MARIANNE and hypokalemia improving (pre-renal referable to diuretics) 6. Hyperlipidemia P:1. Ruled out for [place] 2. IVF with monitor renal recovery and electrolytes 3. Continue Norvasc, Lipitor, tobacco abstinence 4. BD, inhaled steroids, O2 as needed 5. Emphasized importance of compliance 6. Thank you for consultative opportunity
[2017-11-26] MEDS: LACTATED RINGERS SOLUTION 1,000 ML/1,000 ML INFUS.BAG IV SCH (00:30)
[2017-11-26] MEDS: HEPARIN NA (PORCINE) 5,000 UNITS/ML 1ML VIAL SQ SCH (05:59)
[2017-11-26 07:47] LABS: CHLORIDE 103 mmol/L (98-107); POTASSIUM 3.1 mmol/L (3.5-5.1); SODIUM 142 mmol/L (136-145)
[2017-11-26 08:01] LABS: ALBUMIN 3.2 g/dl (3.4-5.0); ALK PHOS 66 U/L (45-117); ANION GAP 7 (8-16); BILIRUBIN,TOTAL 0.2 mg/dL (0.2-1.0); BLOOD UREA NITROGEN 22 mg/dL (7-18); CALCIUM 8.5 mg/dL (8.5-10.1); CO2 32 mmol/L (21-32); CREATININE 1.3 mg/dL (0.7-1.3); GLUCOSE,RANDOM 108 mg/dL (74-106); MAGNESIUM 2.2 mg/dL (1.8-2.4); PHOSPHOROUS 3.3 mg/dL (2.5-4.9); SGOT/AST 17 U/L (15-37); SGPT/ALT 18 U/L (12-78); TOT PROT 6.3 g/dl (6.4-8.2)
[2017-11-26] MEDS ORDERED: POTASSIUM CHLORIDE TABS 20 MEQ TABLET.ER (FP) PO ONE (08:15)
[2017-11-26 08:27] VITALS: BP 126/83; PULSE 89; TEMP 98.1
[2017-11-26] MEDS: amLODIPine BESYLATE 10 MG TABLET (FP) PO SCH (09:29)
[2017-11-26] MEDS: NAPH,MB-DB/K PH,MBDB POWDER PACKET PO SCH (09:29)
[2017-11-26] MEDS ORDERED: ASPIRIN 81 MG CHEWABLE TABLETS PO SCH (10:00)
[2017-11-26] MEDS ORDERED: ATORVASTATIN CA 40 MG TABLET (FP) PO SCH (10:00)
--- NOTE | 2017-11-26 12:16 | PN ---
Progress Note, Physician History of Present Illness: No further atypical post-tussive chest discomfort, dyspnea, cough and wheeze improving. - Current Medication List Current Medications: Active Medications Albuterol Sulfate (Ventolin 0.083% Nebulizer Soln -) 1 amp NEB Q4H PRN PRN Reason: SHORT OF BREATH/WHEEZING Amlodipine Besylate (Norvasc -) 10 mg PO DAILY [facility] Last Admin: 11/26/17 09:29 Dose: 10 mg Aspirin (Asa -) 81 mg PO DAILY [facility] Last Admin: 11/26/17 09:29 Dose: 81 mg Atorvastatin Calcium (Lipitor -) 40 mg PO DAILY [facility] Last Admin: 11/26/17 09:35 Dose: 40 mg Heparin Sodium (Porcine) (Heparin -) 5,000 unit SQ TID [facility] Last Admin: 11/26/17 05:59 Dose: 5,000 unit Lactated Ringer's (Lactated Ringers Solution) 1,000 ml in 1,000 mls @ 100 mls/ hr IV ASDIR [facility] Last Admin: 11/26/17 00:30 Dose: 100 mls/hr Potassium Phos/Sodium Phos (Phos-Nak Packet -) 1 packet PO BID [facility] Last Admin: 11/26/17 09:29 Dose: 1 packet - Objective Vital Signs: Vital Signs Temperature 98.1 F 11/26/17 08:26 Pulse Rate 89 11/26/17 08:26 Respiratory Rate 18 11/26/17 08:26 Blood Pressure 126/83 11/26/17 08:26 O2 Sat by Pulse Oximetry (%) 92 L 11/26/17 08:24 Constitutional: Yes: No Distress, Calm Neck: Yes: Supple Cardiovascular: Yes: Regular Rate and Rhythm Respiratory: Yes: Regular, Diminished Gastrointestinal: Yes: Normal Bowel Sounds, Soft Edema: No Labs: CBC, BMP 11/25/17 06:43 11/26/17 06:46 INR, PTT INR 1.04 (0.82-1.09) 11/24/17 18:55 Problem List - Problems (1) Hyperlipidemia Code(s): E78.5 - HYPERLIPIDEMIA, UNSPECIFIED Qualifiers: Hyperlipidemia type: pure hypercholesterolemia Qualified Code(s): E78.00 - Pure hypercholesterolemia, unspecified; E78.0 - Pure hypercholesterolemia (2) Atypical chest pain Code(s): R07.89 - OTHER CHEST PAIN (3) MARIANNE (acute kidney injury) Code(s): N17.9 - ACUTE KIDNEY FAILURE, UNSPECIFIED (4) Asthma exacerbation Code(s): J45.901 - UNSPECIFIED ASTHMA WITH (ACUTE) EXACERBATION Qualifiers: Asthma severity: unspecified severity Asthma persistence: unspecified Qualified Code(s): J45.901 - Unspecified asthma with (acute) exacerbation (5) Hypertension Code(s): I10 - ESSENTIAL (PRIMARY) HYPERTENSION Qualifiers: Hypertension type: essential hypertension Qualified Code(s): I10 - Essential (primary) hypertension Assessment/Plan 1. Atypical post-tussive chest pain resolved 2. Asthma exacerbation improving 3. HTN 4. Tobacco abuse 5. MARIANNE and hypokalemia improving (pre-renal referable to diuretics) 6. Hyperlipidemia P:1. Ruled out for [place] 2. Oral hydrate with monitor renal recovery and electrolytes 3. Continue Norvasc 10 qd, Lipitor 40 qd, tobacco abstinence, d/c ASA 81 qd 4. BD, inhaled steroids, O2 as needed 5. Emphasized importance of compliance
--- NOTE | 2017-11-26 13:11 | DS ---
Physical Exam: SUBJECTIVE: Patient seen and examined Patient is feeling better with no acute distress. OBJECTIVE: Vital Signs Temperature 98.1 F 11/26/17 08:26 Pulse Rate 89 11/26/17 08:26 Respiratory Rate 18 11/26/17 08:26 Blood Pressure 126/83 11/26/17 08:26 O2 Sat by Pulse Oximetry (%) 92 L 11/26/17 08:24 PHYSICAL EXAM GENERAL: The patient is awake, alert, and fully oriented, in no acute distress. HEAD: Normal with no signs of trauma. EYES: PERRL, extraocular movements intact, sclera anicteric, conjunctiva clear. ENT: Ears normal, nares patent, oropharynx clear without exudates, moist mucous membranes. NECK: Trachea midline, full range of motion, supple. LUNGS: Breath sounds equal, clear to auscultation bilaterally, no wheezes, no crackles, no accessory muscle use. HEART: Regular rate and rhythm, S1, S2 without murmur, rub or gallop. ABDOMEN: Soft, nontender, nondistended, normoactive bowel sounds, no guarding, no rebound, no hepatosplenomegaly, no masses. EXTREMITIES: 2+ pulses, warm, well-perfused, no edema. NEUROLOGICAL: Cranial nerves II through XII grossly intact. Normal speech, gait not observed. PSYCH: Normal mood, normal affect. SKIN: Warm, dry, normal turgor, no rashes or lesions noted. LABS Laboratory Results - last 24 hr 11/26/17 06:46 Sodium 142 Potassium 3.1 L Chloride 103 Carbon Dioxide 32 Anion Gap 7 L BUN 22 H Creatinine 1.3 Creat Clearance w eGFR 59.70 Random Glucose 108 H D Calcium 8.5 Phosphorus 3.3 D Magnesium 2.2 Total Bilirubin 0.2 D AST 17 ALT 18 Alkaline Phosphatase 66 Total Protein 6.3 L Albumin 3.2 L Current Medications Generic Name Dose Route Start Last Admin Trade Name Freq PRN Reason Stop Dose Admin Albuterol Sulfate 1 amp 11/25/17 00:59 Ventolin 0.083% Nebulizer Soln - NEB Q4H PRN SHORT OF BREATH/WHEEZING Amlodipine Besylate 10 mg 11/25/17 10:00 11/26/17 09:29 Norvasc - PO 10 mg DAILY PAULA Administration Atorvastatin Calcium 40 mg 11/26/17 10:00 11/26/17 09:35 Lipitor - PO 40 mg DAILY PAULA Administration Heparin Sodium (Porcine) 5,000 unit 11/25/17 14:00 11/26/17 05:59 Heparin - SQ 5,000 unit TID PAULA Administration Lactated Ringer's 1,000 ml in 1,000 mls @ 100 mls/hr 11/25/17 01:00 11/26/17 00:30 Lactated Ringers Solution IV 100 mls/hr ASDIR PAULA Administration Potassium Phos/Sodium Phos 1 packet 11/25/17 12:15 11/26/17 09:29 Phos-Nak Packet - PO 1 packet BID PAULA Administration Home Medications Medication Instructions Recorded Albuterol Sulfate Inhaler - 1 - 2 inh PO Q4H 11/25/17 [Ventolin Hfa Inhaler -] Amlodipine Besylate [Norvasc -] 10 mg PO DAILY 11/25/17 Hydrochlorothiazide [Hctz -] 12.5 mg PO DAILY 11/25/17 HOSPITAL COURSE: Date of Admission:11/24/17 Date of Discharge: 11/26/17 11/24/17: CXR: no evidence of acute infiltrate, pulmonary vascular congestion or pleural effusion. 11/24/17: EKG: TWI I, avL, v4-v6 Patient is a 47 y/o [place] Male with PMHx of HTN (dx [address] [facility] by PMD; on HCTZ, amlodipine-noncompliant. Only compliant over last 2 wks), asthma (no hx intubations), recent active smoker (few cigarettes/wk), who presents to the ED c/o chest pain and SOB over the past two days. #Acute Chest pain, ACS is ruled out , 3 sets of troponin are negative. No need for aspirin as per cardio , continue Lipitor continue, follow with cardio within a week period. #MARIANNE on CKD most likely due dehydration, Cr 4.4-->1.6-->1,3 today continue to drink at least 2 liter of fluid daily #HTN- currently controlled. continue amlodipine 10mg PO qd. Htcz discontinued #asthma, albuterol 1 amp q4h PRN #active smoker counseled on smoking cessation #hypokalemia will replete, Kdur 2o x 1 dose today #hypocalcemia corrected Ca 7.6, supplemented through IV LR for now as pt with ARF, avoid oral supplementations will discharge the patient home. Minutes to complete discharge: 45 Discharge Summary Reason For Visit: ACUTE KIDNEY INJURY,EXACERBATION OF ASTHMA, Current Active Problems MARIANNE (acute kidney injury) (Acute) Asthma exacerbation (Acute) Atypical chest pain (Acute) Chest pain (Acute) Hyperlipidemia (Acute) Hypertension (Acute) T wave inversion in EKG (Acute) Condition: Stable - Instructions Diet, Activity, Other Instructions: Low fat diet, drink at least 2 liter of fluid per day . follow with your primary care within a week follow with cardiology within 1-2 weeks Referrals: Kelvin Francisco MD [Staff Physician] - 1 Week Carmencita Luu MD [Staff Physician] - 2 Weeks Fidel Elias MD [Staff Physician] - 1 Week Disposition: HOME - Home Medications Comprehensive Discharge Medication List: Ambulatory Orders Albuterol Sulfate Inhaler - [Ventolin Hfa Inhaler -] 1 - 2 inh PO Q4H 11/25/17 Amlodipine Besylate [Norvasc -] 10 mg PO DAILY 11/25/17 Hydrochlorothiazide [Hctz -] 12.5 mg PO DAILY 11/25/17 This patient is new to me today: No Emergency Visit: Yes ED Registration Date: 11/24/17 Care time: The patient presented to the Emergency Department on the above date and was hospitalized for further evaluation of their emergent condition. Critical Care patient: No - Discharge Referral Referred to [facility] Med P.C.: No
--- NOTE | 2017-11-26 13:42 | PN ---
Progress Note, Physician History of Present Illness: Pt seen and examined at bedside. He says he feels better. He denies shortness of breath. - Current Medication List Current Medications: Active Medications Albuterol Sulfate (Ventolin 0.083% Nebulizer Soln -) 1 amp NEB Q4H PRN PRN Reason: SHORT OF BREATH/WHEEZING Amlodipine Besylate (Norvasc -) 10 mg PO DAILY [facility] Last Admin: 11/26/17 09:29 Dose: 10 mg Atorvastatin Calcium (Lipitor -) 40 mg PO DAILY [facility] Last Admin: 11/26/17 09:35 Dose: 40 mg Heparin Sodium (Porcine) (Heparin -) 5,000 unit SQ TID [facility] Last Admin: 11/26/17 05:59 Dose: 5,000 unit - Objective Vital Signs: Vital Signs Temperature 98.1 F 11/26/17 08:26 Pulse Rate 89 11/26/17 08:26 Respiratory Rate 18 11/26/17 08:26 Blood Pressure 126/83 11/26/17 08:26 O2 Sat by Pulse Oximetry (%) 92 L 11/26/17 08:24 Constitutional: Yes: Calm Eyes: Yes: Conjunctiva Clear HENT: Yes: Atraumatic Neck: Yes: Supple Cardiovascular: Yes: S1, S2 Respiratory: Yes: CTA Bilaterally Gastrointestinal: Yes: Soft Genitourinary: Yes: WNL Musculoskeletal: Yes: WNL Edema: No Integumentary: Yes: Tattoos Neurological: Yes: Oriented Psychiatric: Yes: Oriented Labs: CBC, BMP 11/25/17 06:43 11/26/17 06:46 INR, PTT INR 1.04 (0.82-1.09) 11/24/17 18:55 Problem List - Problems (1) Hypertension Code(s): I10 - ESSENTIAL (PRIMARY) HYPERTENSION Qualifiers: Hypertension type: essential hypertension Qualified Code(s): I10 - Essential (primary) hypertension (2) MARIANNE (acute kidney injury) Code(s): N17.9 - ACUTE KIDNEY FAILURE, UNSPECIFIED (3) Asthma exacerbation Code(s): J45.901 - UNSPECIFIED ASTHMA WITH (ACUTE) EXACERBATION Qualifiers: Asthma severity: unspecified severity Asthma persistence: unspecified Qualified Code(s): J45.901 - Unspecified asthma with (acute) exacerbation Assessment/Plan Current Medications Generic Name Dose Route Start Last Admin Trade Name Octaviano PRN Reason Stop Dose Admin Albuterol Sulfate 1 amp 11/25/17 00:59 Ventolin 0.083% Nebulizer Soln - NEB Q4H PRN SHORT OF BREATH/WHEEZING Amlodipine Besylate 10 mg 11/25/17 10:00 11/26/17 09:29 Norvasc - PO 10 mg DAILY [facility] Administration Atorvastatin Calcium 40 mg 11/26/17 10:00 11/26/17 09:35 Lipitor - PO 40 mg DAILY PAULA Administration Heparin Sodium (Porcine) 5,000 unit 11/25/17 14:00 11/26/17 05:59 Heparin - SQ 5,000 unit TID PAULA Administration Selected Entries 11/26/17 11/26/17 06:00 08:26 Blood Pressure 115/78 126/83 Impression 1. MARIANNE improving 2. HTN 3. asthma exacerbation 4. hypokalemia Plan - replace potassium - renal function is improved - will need outpt follow up, he [place] he [place] [facility] - bp is stable on amlodipine 10 mg - recommend not restarting thiazide - discussed 2 gram sodium diet with pt Dr Luu
== END 2017-11-26 14:16 | disposition home or self-care (01) | DRG 460 ==
LOC: JER 19:18 → JERBED 23:25 → J4W 11-25 02:35
PROVIDERS: ADMIT Internal Medicine; ATTEND Internal Medicine
DX: N17.9 Acute kidney failure, unspecified (principal); J45.901 Unspecified asthma with (acute) exacerbation; Z91.14 Patient's other noncompliance with medication regimen; E87.6 Hypokalemia; E83.51 Hypocalcemia; E78.5 Hyperlipidemia, unspecified; R07.89 Other chest pain; Z72.0 Tobacco use; I12.9 Hypertensive chronic kidney disease with stage 1 through stage 4 chronic kidney disease, or unspecified chronic kidney disease; N18.9 Chronic kidney disease, unspecified; E83.39 Other disorders of phosphorus metabolism; E86.0 Dehydration
CPT/HCPCS: 36415; 71045-TC-FY; 76775-TC; 80048; 80053; 80061; 80307; 81003; 82436; 82550; 82553; 82570; 83036; 83721; 83735; 84100; 84133; 84300; 84443; 84484; 85025; 85379; 85610; 87086; 93005; 93010; 99285-25; J1644

== ENCOUNTER 2019-05-08 17:57 | Emergency (ER) | payer OTHER ==
[2019-05-08 18:34] VITALS: TEMP 97.7; BMI 27.1
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
[2019-05-08] MEDS ORDERED: ACETAMINOPHEN 325 MG TABLET (FP) PO ONE (19:36)
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
[2019-05-08] MEDS ORDERED: ACETAMINOPHEN 325 MG TABLET (FP) ONE (20:09)
[2019-05-08] MEDS ORDERED: KETOROLAC TROMETHAMINE 30 MG/1 ML VIAL IM ONE (21:20)
[2019-05-08] MEDS ORDERED: KETOROLAC TROMETHAMINE 30 MG/1 ML VIAL ONE (21:30)
[2019-05-08 21:38] VITALS: BP 139/85; PULSE 77
== END 2019-05-08 21:39 | disposition home or self-care (01) ==
LOC: JER 17:57
PROC: 3E0233Z Introduction of Anti-inflammatory into Muscle, Percutaneous Approach (ICD-10-PCS; principal; 2019-05-08)
DX: M54.5 Low back pain (principal); V44.5XXA Car driver injured in collision with heavy transport vehicle or bus in traffic accident, initial encounter; Y92.414 Local residential or business street as the place of occurrence of the external cause; Y93.89 Activity, other specified; Y99.8 Other external cause status; I10 Essential (primary) hypertension; J45.909 Unspecified asthma, uncomplicated
CPT/HCPCS: 70450-TC; 72125-TC; 99282-25